=== PATIENT | female | born 2000 | race African-American/Black ===

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

== ENCOUNTER 2020-07-31 11:19 | Emergency (ER) | payer SELFPAY | END 2020-07-31 12:48 | disposition home or self-care (01) | LOC: MADERS 11:19 | DX: H65.91 Unspecified nonsuppurative otitis media, right ear (principal); J45.909 Unspecified asthma, uncomplicated; F41.9 Anxiety disorder, unspecified | CPT/HCPCS: 99282 ==